=== PATIENT | male | born 1975 | race Asian ===

== ENCOUNTER → 2017-04-13 15:22 | Emergency (ER) | payer BC, OTHER ==
[~2017-04-13 15:22] MED LIST: Ibuprofen TAB* 800 MG PO ONE; Ketorolac INJ* 30 MG/ML 1 ML VIAL IV PUSH ONE; Metoclopramide IV* 5 MG/ML 2 ML VIAL IV ONE; Morphine INJ* 4 MG/ML 1 ML CARPUJECT IV ONE; NS 0.9% 1000 ML* 1,000 ML IV ONE; diPHENhydraMINE IV* 50 MG/ML 1 ml VIAL (BENADRYL) IV ONE
--- NOTE | 2017-04-13 16:42 | RAD ---
Indication: Headache and stiff neck for a couple of days. Comparison: No relevant prior exams available on the [facility] for comparison. Technique: Noncontrast CT vertex of skull through foramen magnum. Report: Unremarkable cerebral sulci, ventricles, and basal cisterns. The pineal gland measures up to 1 cm diameter is remarkable for thick peripheral calcification and central hypodensity. 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 This lesion is low suspicion based on small size and absence of mass effect. No additional extra-axial or intra-axial lesions evident. Negative for rosas matter white matter obscuration, intra or extra-axial hemorrhage, or mass effect. Unremarkable orbital contents. Unremarkable calvarium and skull base. Clear visualized paranasal sinuses and mastoid air spaces. Unremarkable scalp. IMPRESSION: 1. 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 In absence of prior exams to document stability with none available on the [facility] consider reassessment with pre and postcontrast MRI in 3-6 months time for further characterization and to document stability. 2. The noncontrast head CT exam is otherwise unremarkable.
[2017-04-13 18:20] VITALS: BP 123/72
--- NOTE | 2017-04-13 19:01 | ED ---
Vinay Dockery Angela, scribed for Jatinder Petty MD on 04/13/17 at 1557 . Headache - HPI Summary HPI Summary: This pt is a 41 y/o male [facility]/o constant headache x2 days. Pt reports he woke up 2 nights ago with a headache at 0230. Pt notes he tried going back to sleep and took Advil with some relief. Yesterday, he states he woke up with a headache but it wasn't as bad as the day before. He reports that after getting home in the afternoon his headache became more intense. He took more advil with mild relief. This morning , he states he has more tension in his neck that radiates all the way up the back of his head. The intensity of his headache is waxing and waning. He additionally c/o upset stomach, right sided "fatigue." He denies nausea, vomiting, blurry vision, diplopia, photophobia, sore throat. Pt notes he doesn' t get headaches. Movement makes headache unchanged. No PMHx of HTN. Pt has a titanum plate for his neck due to herniated disc. - History Of Current Complaint Chief Complaint: EDHeadache Stated Complaint: HEADACHE Time Seen by Provider: 04/13/17 15:46 Hx Obtained From: Patient Onset/Duration: Started days ago, Still Present Timing: Constant Location of Headache: Diffuse Aggravating Factor: Nothing Allevating Factors: Nothing, Medication - Advil Associated Signs And Symptoms: Other (Noted In Comments) - tension in neck, upset stomach, right sided fatigue - Allergies/Home Medications Allergies/Adverse Reactions: Allergies Allergy/AdvReac Type Severity Reaction Status Date / Time Aspirin AdvReac Mild stomach Verified 05/23/13 10:36 ache PMH/Surg Hx/FS Hx/Imm Hx Endocrine/Hematology History: Denies: Hx Diabetes Cardiovascular History: Denies: Hx Hypertension, Hx Pacemaker/ICD History: Denies: Hx Renal Disease Sensory History: Denies: Hx Hearing Aid Psychiatric History: Denies: Hx Panic Disorder - Surgical History Surgery Procedure, Year, and Place: c4-c6 discectomy,VASECTOMY. lasix eye Infectious Disease History: No Infectious Disease History: Denies: Traveled Outside the [place] in Last 30 Days - Family History Known Family History: Positive: Diabetes - Son: type 1 diabetes - Social History Alcohol Use: None Substance Use Type: Reports: None Smoking Status (MU): Never Smoked Tobacco Review of Systems Negative: Photophobia, Blurred Vision, Diplopia Negative: Sore Throat Gastrointestinal: Other - upset stomach Negative: Vomiting, Nausea Musculoskeletal: Other - tension in his neck Neurological: Other - right sided fatigue Positive: Headache All Other Systems Reviewed And Are Negative: Yes Physical Exam - Summary Physical Exam Summary: VITAL SIGNS: Reviewed. GENERAL: Patient is a well-developed and nourished male who is lying comfortable in the stretcher. Patient is not in any acute respiratory distress. HEAD AND FACE: No signs of trauma. No ecchymosis, hematomas or skull depressions. No sinus tenderness. EYES: PERRLA, EOMI x 2, No injected conjunctiva, no nystagmus. No photophobia. EARS: Hearing grossly intact. Ear canals and tympanic membranes are within normal limits. MOUTH: Oropharynx within normal limits. NECK: Supple, trachea is midline, no adenopathy, no JVD, no carotid bruit, no c- spine tenderness, neck with full ROM. No Kernig's or brudzinskis signs. No meningeal signs. CHEST: Symmetric, no tenderness at palpation LUNGS: Clear to auscultation bilaterally. No wheezing or crackles. CVS: Regular rate and rhythm, S1 and S2 present, no murmurs or gallops appreciated. ABDOMEN: Soft, non-tender. No signs of distention. No rebound no guarding, and no masses palpated. Bowel sounds are normal. EXTREMITIES: FROM in all major joints, no edema, no cyanosis or clubbing. NEURO: Alert and oriented x 3. No acute neurological deficits. Speech is normal and follows commands. SKIN: Dry and warm GCS: 15 Triage Information Reviewed: Yes Vital Signs On Initial Exam: Initial Vitals Temp Pulse Resp BP Pulse Ox 97.3 F 79 20 134/93 95 04/13/17 15:23 04/13/17 15:23 04/13/17 15:23 04/13/17 15:23 04/13/17 15:23 Vital Signs Reviewed: Yes Diagnostics - Vital Signs Vital Signs Temp Pulse Resp BP Pulse Ox 04/13/17 15:23 97.3 F 79 20 134/93 95 - Laboratory Lab Statement: Any lab studies that have been ordered have been reviewed, and results considered in the medical decision making process. - CT Brain CT CT Interpretation: Positive (See Comments) - IMPRESSION: 1. 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 In abscence of prior exams to document stability with none available on the [facility] consider reassessment with pre and postcontrast MRI in 3-6 months time for further characterization and to document stability. 2. The noncontrast head CT exam is otherwise unremarkable. ED physician has reviewed this radiology report and agrees. CT Interpretation Completed By: Radiologist Re-Evaluation - Re-Evaluation First Eval Re-Evaluation Time: 17:43 Comment: I reviewed the CT brain results with the pt. Headache Course/Dx - Course Assessment/Plan: This pt is a 41 y/o male [facility] c/o constant headache x2 days. Pt reports he woke up 2 nights ago with. a headache at 0230. Pt notes he tried going back to sleep and took Advil with some relief. Yesterday , he states he woke up with a headache but it wasn't as bad as the day before. He reports that after getting home in the afternoon his headache became more intense. He took more advil with mild relief. This morning, he states he has more tension in his neck that radiates all the way up the back of his head. The intensity of his headache is waxing and waning. He additionally c/o upset stomach, right sided "fatigue." He denies nausea, vomiting, blurry vision, diplopia, photophobia, sore throat. Pt notes he doesn't get headaches. Movement makes headache unchanged. No PMHx of HTN. Pt has a titanum plate for his neck due to herniated disc. Since the pt does not have history of headaches, I did a head CT. Head CT shows 1. 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 In abscence of prior exams to document stability with none available on the [facility] consider reassessment with pre and postcontrast MRI in 3-6 months time for further characterization and to document stability. 2. The noncontrast head CT exam is otherwise unremarkable. In the ED course, the pt was given Ibuprofen and his symptoms resolved. He declines Benadryl, Reglan or morphine since the pain has subsided. Since the pt is asymptomatic, he will be discharged home with follow up from his PCP. He is advised to follow up with his PCP for a possible MRI in 3-6 months for a lesion in the pineal gland. Pt is neurologically intact. - Diagnoses Provider Diagnoses: Headache Discharge - Discharge Plan Condition: Stable Disposition: HOME Prescriptions: Ibuprofen TAB* [Motrin TAB* 800 MG] 800 mg PO TID PRN #30 tab PRN Reason: Pain Methocarbamol [Robaxin-750 MG TAB] 750 mg PO TID PRN #12 tab PRN Reason: Spasms Patient Education Materials: General Headache (ED) Referrals: Colin Harrell MD [Primary Care Provider] - Additional Instructions: Please follow up with your primary care provider. RETURN TO THE ED FOR ANY WORSENING SYMPTOMS. The documentation as recorded by the iVnay rizo Angela accurately reflects the service I personally performed and the decisions made by Jovanny brannon Walter, MD.
== END | disposition home or self-care (01) ==
LOC: ED 15:22
DX: R51 Headache (principal)
CPT/HCPCS: 36415; 70450; 82375; 85652; 86618; 96374; 96375; 99282; A9270-GY; J1200; J2270; J2765

== ENCOUNTER 2019-07-15 12:29 | Emergency (ER) | payer SELFPAY ==
--- OUTSIDE RECORDS SUMMARY | 2019-07-15 12:45 | XMS REPORT | Summary of Care ---
:1975 Author Organization The Address 1 [facility] [place] [address] Care Team Providers Name Role Phone Vesna Cuellar Primary Care Provider Reason for Referral Sleep Study (Routine) Status Reason Specialty Diagnoses / Referred By Referred To Procedures Contact Contact Pending Review Sleep Disorder Diagnoses Malaise and fatigue [facility] Sleep Lab FAITH [id number] [place], [place] [id number] Phone: Scheduling Instructions This order is to be used to begin the process for the patient to have a Sleep Study performed. If you wish to have the patient evaluated by a Sleep Specialist, please place a "Refer Sleep Medicine Specialist" order. If you have questions, please contact our Patient Coordinators: Maylin: Toomsuba: Lino: ([phone] or Reason for Visit Reason Comments Referral sleep study Encounter Details Date Type Department Care Team Description 06/24/2019 Office Visit [facility] Vesna Cuellar, Malaise and fatigue Practice ICU REGISTERED NURSE (Primary Dx) [address] [place] [address] [place] [address] [phone] Allergies Active Allergy Reactions Severity Noted Date Comments Aspirin GI Reaction 11/05/2014 documented as of this encounter (statuses as of 06/24/2019) Medications Medication Sig Dispensed Refills Start Date End Date Status fluticasone (FLONASE) [place] 2 Sprays in 1 Bottle 0 08/07/2018 Active 50 MCG/ACT Nasal nose DIRECTED. SuspensionIndications: 2 sprays in each Acute maxillary nostril once daily sinusitis, recurrence until symptoms not specified gone ketoconazole (NIZORAL) Apply small amount 30 g 0 01/14/2019 Active 2 % Apply externally twice daily Cream documented as of this encounter (statuses as of 06/24/2019) Active Problems Problem Noted Date Disorders of bursae and tendons in shoulder region, unspecified 12/12/2014 Shoulder pain, right 11/05/2014 documented as of this encounter (statuses as of 06/24/2019) Social History Tobacco Use Types Packs/Day Years Used Date Never Smoker Smokeless Tobacco: Former User Alcohol Use Drinks/Week oz/Week Comments Yes 6 Standard drinks or equivalent 6.0 socially. Sex Assigned at Date Recorded Not on file Job Start Date Occupation Industry Not on file Not on file Not on file Travel History Travel Start Travel End No recent travel history available. documented as of this encounter Last Filed Vital Signs Vital Sign Reading Time Taken Comments Blood Pressure 132/68 06/24/2019 3:22 PM EST Pulse 102 06/24/2019 3:22 PM EST Temperature - - Respiratory Rate - - Oxygen Saturation 95% 06/24/2019 3:22 PM EST Inhaled Oxygen Concentration - - Weight 95.3 kg (210 lb) 06/24/2019 3:22 PM EST Height 167.6 cm (5' 6") 06/24/2019 3:22 PM EST Body Mass Index 33.89 06/24/2019 3:22 PM EST documented in this encounter Patient Instructions Patient InstructionsNoVesna reese NP - 06/24/2019 3:20 PM ESTDavid will call you in a few weeks to schedule a time to bean picker the home sleep study kit. I will let you know when I have the results of the home sleep study available and what follow up/treatment is required. documented in this encounter Progress Notes Vesna Cuellar NP - 06/24/2019 3:20 PM EST PATIENT: Mark Coffey : 1975 DATE OF SERVICE: 06/24/2019 CHIEF COMPLAINT: Chief Complaint Patient presents with Referral sleep study Subjective HISTORY OF PRESENT ILLNESS: Mark Coffey is a 43-y.o. male. HPI He doesn't sleep well but thinks because of sinuses and nasal congestion. Left ear is plugged sincean episode of vomiting, saw ENT for this and told nothing to be done. Sudafed did help some. Snores loudly at times, has been told that he has apneic episodes during sleep and then his body shakes to start breathing again. Tired all the time. But also very busy. Sleeps from 8:30pm to 5am, does not wake up feeling rested. Wants to nap during the day, dozing off at his desk during work in the afternoon. History reviewed. No pertinent past medical history. Family History Problem Relation Age of Onset Arthritis Mother RA Current Outpatient Medications Medication Sig fluticasone (FLONASE) 50 MCG/ACT Nasal Suspension [place] 2 Sprays in nose DIRECTED. 2 sprays in each nostril once daily until symptoms gone ketoconazole (NIZORAL) 2 % Apply externally Cream Apply small amount twice daily No current facility-administered medications for this visit. Allergies Allergen Reactions Aspirin GI Reaction Social History Socioeconomic History Marital status: Single Spouse name: Not on file Number of children: Not on file Years of education: Not on file Highest education level: Not on file Occupational History Not on file Social Needs Financial resource strain: Not on file Food insecurity Worry: Not on file Inability: Not on file Transportation needs Medical: Not on file Non-medical: Not on file Tobacco Use Smoking status: Never Smoker Smokeless tobacco: Former User Substance and Sexual Activity Alcohol use: Yes Alcohol/week: 6.0 standard drinks Types: 6 Standard drinks or equivalent per week Comment: socially. Drug use: No Sexual activity: Yes Lifestyle Physical activity Days per week: Not on file Minutes per session: Not on file Stress: Not on file Relationships Social connections Talks on phone: Not on file Gets together: Not on file Attends temple service: Not on file Active member of club or organization: Not on file Attends meetings of clubs or organizations: Not on file Relationship status: Not on file Intimate partner violence Fear of current or ex partner: Not on file Emotionally abused: Not on file Physically abused: Not on file Forced sexual activity: Not on file Other Topics Concern Not on file Social History Narrative Vasectomy . 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 Over the last 2 weeks, have you been feeling down, depressed, anxious, or hopeless?: 0 Over the past 2 weeks, have you felt little interest or pleasure in doing things ?: 0 REVIEW OF SYSTEMS: Review of Systems Constitutional: Positive for malaise/fatigue. HENT: Positive for congestion. Respiratory: Negative for cough and shortness of breath. Cardiovascular: Negative for chest pain and palpitations. Neurological: Negative for dizziness and headaches. Objective PHYSICAL EXAM: VITALS: BP 132/68 (BP Location: Right arm, Patient Position: Sitting) | Pulse 102 | Ht 5' 6" (1.676 m) | Wt 210 lb (95.3 kg) | SpO2 95% | BMI 33.89 kg/m Body mass index is 33.89 kg/m. Physical Exam Vitals signs and nursing note reviewed. Constitutional: General: He is not in acute distress. Appearance: Normal appearance. He is well-developed. HENT: Mouth/Throat: Pharynx: Uvula swelling (large uvula) present. Tonsils: Swellin+ on the right. 2+ on the left. Cardiovascular: Rate and Rhythm: Normal rate and regular rhythm. Heart sounds: Normal heart sounds. No murmur. No friction rub. No gallop. Pulmonary: Effort: Pulmonary effort is normal. No respiratory distress. Breath sounds: Normal breath sounds. Neurological: Mental Status: He is alert. Psychiatric: Mood and Affect: Mood and affect normal. Speech: Speech normal. Behavior: Behavior normal. Behavior is cooperative. ASSESSMENT / IMPRESSION: ICD-9-CM ICD-10-CM 1. Malaise and fatigue 780.79 R53.81 REFER TO SLEEP STUDY LAB R53.83 Plan 1. Malaise and fatigue -Will do home sleep study, follow up depending on results. - REFER TO SLEEP STUDY LAB Author: Vesna Cuellar NP 06/24/2019 16:23 documented in this encounter Plan of Treatment Name Type Priority Associated Diagnoses Order Schedule REFER TO SLEEP STUDY LAB Referral Routine Malaise and fatigue Ordered: Health Maintenance Due Date Last Done Comments DTaP/Tdap/Td Vaccines (1 - 1985 Tdap) HIV SCREENING 1989 LIPID DISORDER SCREENING 1992 INFLUENZA VACCINE (#1) 2019 DIABETES SCREENING 06/07/2019 06/07/2018, 07/05/2017 DEPRESSION SCREENING 06/24/2020 06/24/2019 HEPATITIS A IMMUNIZATION Aged Out No longer eligible based SERIES on patient's age to complete this topic HPV IMMUNIZATION SERIES Aged Out No longer eligible based on patient's age to complete this topic MENINGOCOCCAL VACCINE IMM Aged Out No longer eligible based on patient's age to complete this topic PNEUMOCOCCAL 0-64 YRS Aged Out No longer eligible based on patient's age to complete this topic documented as of this encounter Results Not on filedocumented in this encounter Visit Diagnoses Diagnosis Malaise and fatigue Other malaise and fatigue documented in this encounter Insurance Payer Benefit Plan / Subscriber ID Effective Dates Phone Address Type Group [employer] JADE SEGALBS xxxxxxxxxxxx 2014-Present [employer] Guarantor Name Account Type Relation to Date of Phone Billing Address Patient Mark Coffey Personal/Famil 1975 [phone] ([place]) [place] [address] documented as of this encounter
[2019-07-15 12:49] VITALS: BP 146/93
--- NOTE | 2019-07-15 13:45 | UC ---
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 On 07/12/19, after sitting at a work meeting for , he had onset of whole leg numbness in the right leg associated with a sense of weakness. At that time he was able to walk without difficulty. Had gradual resolution of paresthesias over the next day, but increased today when he placed his gun over this right hip. He has no associated back pain. Past hx of cervical discectomy. - History of Current Complaint Chief Complaint: UCLowerExtremity Stated Complaint: RT LEG ISSUE Time Seen by Provider: 07/15/19 13:23 Hx Obtained From: Patient Onset/Duration: Sudden Onset, Lasting Days - 4 Timing: Intermittent, Lasting Hours Severity Initially: Mild Severity Currently: Mild Pain Intensity: 0 Back Pain: Is Discrete @ - right leg Character: Unable to Describe Aggravating Factor(s): Movement Alleviating Factor(s): Rest Associated Signs And Symptoms: Positive: Weakness - difficuty flexing his right hip, Tingling - Risk Factors AAA Risk Factors: Negative TAD Risk Factors: Negative - Allergies/Home Medications Allergies/Adverse Reactions: Allergies Allergy/AdvReac Type Severity Reaction Status Date / Time aspirin Allergy GI Upset Verified 07/15/19 12:49 Home Medications: Home Medications Pseudoephedrine TAB* [Sudafed TAB*] 30 mg PO Q6H PRN 07/15/19 [History Confirmed 07/15/19] PMH/Surg Hx/FS Hx/Imm Hx Previously Healthy: Yes - Surgical History Surgical History: Yes Surgery Procedure, Year, and Place: c4-c6 discectomy-PT HAS TRIED NUMBEROUS TIMES TO GET OP REPORT FROM [facility]-I ALSO CALLED AND SPOKE WITH FAMILIA AND WAS UNABLE TO GET ANYWHERE WITH THE [facility] OFFICE-WILL NEED DX TO CLEAR PT FOR MRI, VASECTOMY. lasix eye - Family History Known Family History: Positive: Diabetes - Son: type 1 diabetes - Social History Occupation: Employed Full-time Lives: With Family Alcohol Use: Occasionally Substance Use Type: None Smoking Status (MU): Current Some Day Smoker Review of Systems All Other Systems Reviewed And Are Negative: Yes Constitutional: Positive: Negative Skin: Positive: Negative Eyes: Positive: Negative ENT: Positive: Negative Respiratory: Positive: Negative Cardiovascular: Positive: Negative Gastrointestinal: Positive: Negative Genitourinary: Positive: Negative Motor: Positive: Weakness Neurovascular: Positive: Negative Musculoskeletal: Positive: Negative Neurological/Mental Status: Positive: Paresthesia Psychological: Positive: Negative Is Patient Immunocompromised?: No Physical Exam Triage Information Reviewed: Yes Appearance: Well-Appearing, No Pain Distress Vital Signs: Initial Vital Signs Temp 98.1 F 07/15/19 12:44 Pulse 98 07/15/19 12:44 Resp 16 07/15/19 12:44 BP 146/93 07/15/19 12:44 Pulse Ox 98 07/15/19 12:44 ENT Exam: Normal Neck: Positive: Supple, Nontender, No Lymphadenopathy Respiratory: Positive: Lungs clear, Normal breath sounds Cardiovascular: Positive: RRR, No Murmur Abdomen Description: Positive: Nontender, No Organomegaly, Soft Musculoskeletal Exam: Other - Normal gait, full rom in lumbar spine without symptoms. SLR to 85 degrees bilaterally with tight hamstrings. Musculoskeletal: Positive: Strength Intact Neurological Exam: Other - DTR's in LE are 1-2+, symmetrical, toes downgoing ? very mild difference in hip flexor strength on the right relative to the left. Neurological: Positive: Alert, Muscle Tone Normal Psychological Exam: Normal Skin Exam: Normal Back Pain Course/Dx - Course Course Of Treatment: Comes for assessment for possible worker's comp injury due to sudden occurrence of symptoms with a change of posture. He feels able to perform his work duties without compromise. Discussed ? mild sciatic symptoms versus radiculapathy, but he has no pain to suggest acute disk rupture. Also discussed that there are processes which could cause this which are not work related (B12 deficiency or spinal cord issues). Will refer to Dr. Boston for assessment. - Differential Dx/Diagnosis Differential Diagnosis/HQI/PQRI: Herniated Disc, Other - sciatica, right radiculopathy Provider Diagnosis: Right sided sciatica Discharge ED - Sign-Out/Discharge Documenting (check all that apply): Patient Departure All imaging exams completed and their final reports reviewed: No Studies - Discharge Plan Condition: Stable Disposition: HOME Patient Education Materials: Sciatica (ED) Referrals: No Primary Care Phys,NOPCP [Primary Care Provider] - Reji Boston MD [Medical Doctor] - Additional Instructions: As reviewed, you have symptoms that suggest irritation to the sciatic nerve, which could be related to work. You have been referred to Dr. Boston, our occupational therapy manager, for evaluation. Please call to arrange a visit within the week. At this time, you are fit to work without rstrictions. If you have progressive symptoms which cause either an increase in pain or an inability to walk easily, please return for re-evaluation. - Billing Disposition and Condition Condition: STABLE Disposition: Home
== END 2019-07-15 14:30 | disposition home or self-care (01) ==
LOC: UCEAST 12:29
DX: M54.31 Sciatica, right side (principal); R20.2 Paresthesia of skin; F17.200 Nicotine dependence, unspecified, uncomplicated; Z88.8 Allergy status to other drugs, medicaments and biological substances
CPT/HCPCS: 99211; G0463